=== PATIENT | female | born 1955 | race Caucasian/White ===

== ENCOUNTER 2021-05-07 15:21 | Outpatient (CLI) | payer MEDICARE, MEDICAID ==
[2021-05-07 16:59] LABS: BUN - BLOOD UREA NITROGEN 25 mg/dL (6-20); CALCIUM 9.5 mg/dL (8.5-10.3); CARBON DIOXIDE - CO2 26 mmol/L (21-32); CHLORIDE 104 mmol/L (101-111); CHOL/HDL RATIO 3.5 (<4.4); CHOLESTEROL 130 mg/dL; CREATININE 1.3 mg/dL (0.4-1.0); GFR - MDRD 41 (>89); GLUCOSE 114 mg/dL (70-100); HDL CHOLESTEROL 37 mg/dL; LDL CHOLESTEROL,CALCULATED 28 mg/dL; LDL/HDL RATIO 0.8 (<4.4); POTASSIUM 3.9 mmol/L (3.5-5.0); SODIUM 140 mmol/L (135-145); TRIGLYCERIDES 325 mg/dL; VLDL CHOLESTEROL 65 mg/dL
--- NOTE | 2021-05-07 19:27 | Ultrasound Report ---
PROCEDURE: Duplex Upr Ext Arterial RT INDICATIONS: SUBCLAVIAN ATERY STENOSIS TECHNIQUE: Color and pulse Doppler interrogation was performed of right upper extremity arterial systems, with i mage documentation. COMPARISON: None. FINDINGS: Subclavian artery (proximal): 164 cm/sec, with monophasic flow. Subclavian artery (mid): 154 cm/sec, with biphasic flow. Subclavian artery (distal): 143 cm/sec, with biphasic flow. Axillary artery: 126 cm/sec, with monophasic flow. Brachial artery (mid): 92 cm/sec, with monophasic flow. Radial artery (proximal): 65 cm/sec, with monophasic flow. Radial artery (mid): 89 cm/sec, with monophasic flow. Radial artery (distal): 77 cm/sec, with monophasic flow. Ulnar artery (proximal): 75 cm/sec, with monophasic flow. Ulnar artery (mid): 86 cm/sec. with monophasic flow. Ulnar artery (distal): 76 cm/sec, with monophasic flow. North-scale imaging description: Mild sclerotic plaque noted IMPRESSION: 1. Monophasic waveforms throughout the exam consistent with peripheral arterial disease. No occlusion 2. Subclavian stent not visualized by ultrasound Reviewed by: Alejandro Gonsales MD on 05/07/2021 6:25 PM JUAN Approved by: Alejandro Gonsales MD on 05/07/2021 6:25 PM AKBOBBY Station ID: [id number]
== END 2021-05-07 15:22 | disposition home or self-care (01) ==
LOC: DI 15:21 → LAB 15:22
PROVIDERS: ATTEND Internal Medicine
DX: I25.10 Atherosclerotic heart disease of native coronary artery without angina pectoris (principal); I25.83 Coronary atherosclerosis due to lipid rich plaque; I77.1 Stricture of artery; I50.42 Chronic combined systolic (congestive) and diastolic (congestive) heart failure
CPT/HCPCS: 36415; 80048; 80053; 80061; 83721

== ENCOUNTER 2022-01-06 11:06 | Outpatient (CLI) | payer MEDICARE, MEDICAID ==
--- NOTE | 2022-01-07 07:28 | Ultrasound Report ---
ULTRASOUND OF RIGHT AXILLA: 01/06/2022 CLINICAL: Focal right axilla pain. No prior exams were available for comparison. Color flow ultrasound of the right axilla was performed. North scale images of the real-time examinat ion were reviewed. No significant abnormalities were seen sonographically in the right axilla. IMPRESSION: NEGATIVE There is no sonographic evidence of malignancy. There is no abnormality seen in the right breast to correspond with the pain in the axilla, however, clinical followup is recommended. This exam was interpreted at Station ID: [id number]. Electronically Signed By: Blake zapien/[email or web address]:01/06/2022 11:40:43 Ultrasound BI-RADS: 1 Negative BI-RADS CATEGORY: (1) - 1 Unspecified - other recall n/a LATERALITY: (B)
== END 2022-01-06 11:07 | disposition home or self-care (01) ==
LOC: DI 11:06
PROVIDERS: ATTEND Internal Medicine
DX: M79.621 Pain in right upper arm (principal)

== ENCOUNTER 2022-04-10 07:02 | Outpatient (CLI) | payer MEDICARE, MEDICAID ==
--- NOTE | 2022-04-10 14:08 | XRAY Report ---
PROCEDURE: Chest 2 View X-Ray INDICATIONS: PAIN TECHNIQUE: 2 view(s) of the chest. COMPARISON: None. FINDINGS: Surgical changes and devices: None. Lungs and pleura: No pleural effusions or pneumothorax. Lungs are clear. Mediastinum: Mediastinal contours are normal. Heart size is normal. Bones and chest wall: No suspicious bony abnormalities. Soft tissues appear unremarkable. IMPRESSION: No acute pulmonary process. Reviewed by: Louisa Huffman MD on 04/10/2022 2:07 PM PDT Approved by: Louisa Huffman MD on 04/10/2022 2:07 PM PDT Station ID: [id number]
== END 2022-04-10 07:03 | disposition home or self-care (01) ==
LOC: DI.N 07:02
PROVIDERS: ATTEND Physician Assistant
DX: R06.02 Shortness of breath (principal); R09.89 Other specified symptoms and signs involving the circulatory and respiratory systems

== ENCOUNTER 2023-02-15 15:18 | Outpatient (CLI) | payer MEDICARE, MEDICAID ==
--- NOTE | 2023-02-16 09:38 | DEXA Report ---
PROCEDURE: Dexa Spine and/or Hip INDICATIONS: POSTMENOPAUSAL TECHNIQUE: Dual energy x-ray absorptiometry (DXA) was performed on a StepOut System. Regions measur ed are the AP Spine, femoral neck, and if needed forearm. COMPARISON: None. FINDINGS: Lumbar Spine: Bone Mineral Density 1.061 g/cm/cm,T score -1.0, normal Left Femoral Neck: Bone Mineral Density 0.848 g/cm/cm, T score -1.4, osteopenia Left total Hip: Bone Mineral Density 0.891 g/cm/cm,T score -0.9, normal (T score greater or equal to -1.0: NORMAL) (T score from -1.1 to -2.4: OSTEOPENIA) (T score less than or equal to -2.5 to: OSTEOPOROSIS) Impression: Osteopenia Patients with diagnosis of osteoporosis or osteopenia should have regular bone mineral density assess ment. For those eligible for Medicare, routine testing is allowed once every 2 years. Testing frequ ency can be increased for patients who have rapidly progressing disease or for those who are receivin g medical therapy to restore bone mass. Reviewed by: Betito Graves on 02/16/2023 9:37 AM PDT Approved by: Betito Graves on 02/16/2023 9:37 AM PDT Station ID: [id number]
== END 2023-02-15 15:19 | disposition home or self-care (01) ==
LOC: DI 15:18
PROVIDERS: ATTEND Physician Assistant
DX: M85.89 Other specified disorders of bone density and structure, multiple sites (principal)

== ENCOUNTER 2023-03-19 15:58 | Outpatient (CLI) | payer MEDICARE, MEDICAID ==
--- NOTE | 2023-03-20 15:17 | Ultrasound Report ---
PROCEDURE: Duplex Lwr Ext Arterial Bilat INDICATIONS: CLAUDICATION TECHNIQUE: Color and pulse Doppler interrogation was performed of both lower extremity arterial systems, with im age documentation. COMPARISON: None FINDINGS: Right lower extremity: Common femoral artery: 195 cm/sec, with biphasic flow. Deep femoral artery: 62 cm/sec, with biphasic flow. Proximal superficial femoral artery: 132 cm/sec, with biphasic flow. Mid superficial femoral artery: 141 cm/sec, with biphasic flow. Distal superficial femoral artery: 40 cm/sec, with biphasic flow. Popliteal artery: 79 cm/sec, with biphasic flow. Posterior tibial artery: 98 cm/sec, with biphasic flow. Anterior tibial artery/dorsalis pedis: 81 cm/sec, with biphasic flow. North-scale imaging description: Mild atherosclerotic plaque Left lower extremity: Common femoral artery: 162 cm/sec, with biphasic flow. Deep femoral artery: 94 cm/sec, with biphasic flow. Proximal superficial femoral artery: 159 cm/sec, with biphasic flow. Mid superficial femoral artery: 93 cm/sec, with biphasic flow. Distal superficial femoral artery: 97 cm/sec, with biphasic flow. Popliteal artery: 87 cm/sec, with biphasic flow. Posterior tibial artery: 99 cm/sec, with biphasic flow. Anterior tibial artery/dorsalis pedis: 84 cm/sec, with biphasic flow. North-scale imaging description: Scattered atherosclerotic plaque IMPRESSION: Elevated peak systolic velocity in the right SQL TECH suggests inflow disease Reviewed by: Alejandro Gonsales MD on 03/20/2023 2:16 PM AKBOBBY Approved by: Alejandro Gonsales MD on 03/20/2023 2:16 PM AKDT Station ID: [id number]
== END 2023-03-19 15:59 | disposition home or self-care (01) ==
LOC: DI 15:58
PROVIDERS: ATTEND Podiatrist
DX: I73.89 Other specified peripheral vascular diseases (principal)
CPT/HCPCS: 93925

== ENCOUNTER 2023-03-19 16:00 | Outpatient (CLI) | payer MEDICARE, MEDICAID ==
--- NOTE | 2023-03-20 00:33 | XRAY Report ---
PROCEDURE: Ankle 3 View BILAT INDICATIONS: BILATERAL ANKLE PAIN TECHNIQUE: 3 views of the ankle were acquired. COMPARISON: None. FINDINGS: Right side: Mild degenerative changes without acute fracture or dislocation. Ankle mortise appears ma intained. No suspicious calcifications. There may be some soft tissue swelling. Calcaneal enthesopath y is present. Left side: Mild degenerative changes without acute fracture or dislocation. No suspicious calcificati ons. The ankle mortise appears maintained. Trace calcaneal enthesopathy. There may be some soft tissu e swelling. IMPRESSION: Mild bilateral degenerative changes, without acute radiographic abnormality. If there is high concern for further derangement, consider MRI evaluation. Reviewed by: Obey Nicole MD on 03/20/2023 12:31 AM PDT Approved by: Obey Nicole MD on 03/20/2023 12:31 AM PDT Station ID: [id number]
== END 2023-03-19 16:01 | disposition home or self-care (01) ==
LOC: DI 16:00
PROVIDERS: ATTEND Podiatrist
DX: M19.071 Primary osteoarthritis, right ankle and foot (principal); M19.072 Primary osteoarthritis, left ankle and foot

== ENCOUNTER 2023-04-15 07:45 | Outpatient (CLI) | payer MEDICARE, MEDICAID ==
--- NOTE | 2023-04-15 15:05 | Ultrasound Report ---
PROCEDURE: Arterial Visceral Complete INDICATIONS: RENAL ARTERY STENOSIS,SUBCLAVIAN ARTERY STENOSIS TECHNIQUE: Real time scanning was performed of both kidneys, followed by Color and pulsed Doppler in terrogation of the renal vessels. COMPARISON: None FINDINGS: Aortic peak systolic velocity: 87 cm/s. Right side: North-scale imaging: Kidney is 6.7 cm in length. No hydronephrosis. No nephrolithiasis. Renal cortex is normal in echogenicity. No suspicious solid renal masses. Proximal renal artery peak systolic velocity: Not identified. Mid renal artery peak systolic velocity: Not identified Distal renal artery peak systolic velocity: Not identified Hilum peak systolic velocity: 46 cm/s Renal vein: Patent, without thrombus. Peak renal/aortic ratio (RAR): 0.53. Left side: North-scale imaging: Kidney is 11.4 cm in length. No hydronephrosis. No nephrolithiasis. Renal irwin x is normal in echogenicity. No suspicious solid renal masses. Color flow imaging: Left renal arterial bypass is patent. Proximal renal artery peak systolic velocity: 402 cm/s. Mid-renal artery peak systolic velocity: 291 cm/s. Distal renal artery peak systolic velocity: 26 cm/s. Hilum peak systolic velocity: 186 cm/s Renal vein: Patent, without thrombus. Peak renal/aortic ratio (RAR): 1.64. IMPRESSION: 1. Left renal artery bypass is patent. 2. High-grade stenosis at the left anastomosis to the aorta greater than 60%. 3. No flow to the right kidney with small size and atrophy of the right kidney consistent with ischem ia. Reviewed by: Betito Graves on 04/15/2023 3:04 PM PDT Approved by: Betito Graves on 04/15/2023 3:04 PM PDT Station ID: [id number]
--- NOTE | 2023-04-15 15:09 | Ultrasound Report ---
PROCEDURE: Duplex Upr Ext Arterial RT INDICATIONS: RENAL ARTERY STENOSIS,SUBCLAVIAN ARTERY STENOSIS TECHNIQUE: Color and pulse Doppler interrogation was performed of right upper extremity arterial systems, with i mage documentation. COMPARISON: None. FINDINGS: The right subclavian artery stent is patent. Significant stenosis greater than 50% is seen within the mid and distal subclavian artery. IMPRESSION: 1. Hemodynamically significant stenosis in the mid and distal subclavian artery greater than 50%. 2. Subclavian artery stent is patent. Reviewed by: Betito Graves on 04/15/2023 3:07 PM PDT Approved by: Betito Graves on 04/15/2023 3:07 PM PDT Station ID: [id number]
== END 2023-04-15 07:46 | disposition home or self-care (01) ==
LOC: DI 07:45
PROVIDERS: ATTEND Thoracic Surgery (Cardiothoracic Vascular Surgery)
DX: I70.1 Atherosclerosis of renal artery (principal); I70.8 Atherosclerosis of other arteries; I70.0 Atherosclerosis of aorta
CPT/HCPCS: 93975

== ENCOUNTER 2023-10-22 09:00 | Outpatient (CLI) | payer MEDICARE, MEDICAID ==
[2023-10-22 12:28] LABS: BASOPHILS % (AUTO) 0.4 %; EOSINOPHILS # (AUTO) 0.2 10^3/uL (0.0-0.7); EOSINOPHILS % (AUTO) 1.9 %; HCT - HEMATOCRIT 38.3 % (37.0-47.0); HGB - HEMOGLOBIN 12.9 g/dL (12.0-16.0); LYMPHOCYTES # (AUTO) 1.7 10^3/uL (1.5-3.5); LYMPHOCYTES % (AUTO) 21.6 %; MEAN CORPUSCULAR HEMOGLOBIN 33.9 pg (27.0-31.0); MEAN CORPUSCULAR HGB CONC 33.7 g/dL (32.0-36.0); MEAN CORPUSCULAR VOLUME 100.5 fL (81.0-99.0); MEAN PLATELET VOLUME 10.1 fL (7.9-10.8); MONOCYTES # (AUTO) 0.5 10^3/uL (0.0-1.0); MONOCYTES % (AUTO) 6.8 %; NEUTROPHILS # (AUTO) 5.5 10^3/uL (1.5-6.6); PLT - PLATELET COUNT 198 10^3/uL (130-450); RED BLOOD COUNT 3.81 10^6/uL (4.20-5.40); RED CELL DISTRIBUTION WIDTH 12.3 % (12.0-15.0); WHITE BLOOD COUNT 7.9 x10^3/uL (4.8-10.8)
[2023-10-22 13:11] LABS: ALBUMIN 4.1 g/dL (3.2-5.5); ALBUMIN/GLOBULIN RATIO 2.3 (1.0-2.2); BILIRUBIN,TOTAL 0.3 mg/dL (0.2-1.0); CALCIUM 9.1 mg/dL (8.5-10.3); CREATININE 1.3 mg/dL (0.6-1.3); POTASSIUM 4.2 mmol/L (3.5-4.5); TOTAL PROTEIN 5.9 g/dL (6.4-8.9)
== END 2023-10-22 09:15 | disposition home or self-care (01) ==
LOC: LAB.N 09:00
PROVIDERS: ATTEND Physician Assistant Medical
DX: R10.30 Lower abdominal pain, unspecified (principal)
CPT/HCPCS: 36415; 80053; 83690; 85025; 87086

== ENCOUNTER 2023-11-01 08:27 | Outpatient (CLI) | payer MEDICARE, MEDICAID ==
[2023-11-01] MEDS ORDERED: DIATR MEGLU/DIATRIZOATE SODIUM 120 ML BOTTLE ONE (08:36)
[2023-11-01] MEDS ORDERED: DIATRIZOATE MEGLU/DIATRIZO SOD 30 ML BOTTLE PO ONE (10:25)
--- NOTE | 2023-11-01 15:11 | CT Report ---
PROCEDURE: ABDOMEN/PELVIS WO INDICATIONS: SUPRAPUBIC PAIN TECHNIQUE: A CT scan of the abdomen and pelvis was performed without the use of intravenous contrast. Images we re recorded and evaluated at appropriate window settings. Reformats: coronal and sagittal. For radiat ion dose reduction, the following was used: automated exposure control, adjustment of mA and/or kV ac cording to patient size. COMPARISON: None. FINDINGS: Image quality: Excellent. Lung bases and heart: Unremarkable. Liver: Normal. Gallbladder and biliary tree: Surgically absent gallbladder. Nondilated biliary tree. Spleen: Normal. Pancreas: No pancreatic ductal dilation. Adrenals: No adrenal nodule. Kidneys and ureters: Markedly atrophic right kidney. No calcifications or hydronephrosis. Normal left renal contour and normal bilateral ureters. Bowel and peritoneum: Short segmental wall thickening involving the mid sigmoid colon. Numerous diver ticula. Mild pericolonic fat stranding. Adjacent fascial thickening. No adjacent fluid or extralumina l gas. Appendix, stomach, small bowel, and remainder of the colon are normal. Lymph nodes: No central or retroperitoneal adenopathy. Vessels: No infrarenal aortic aneurysm. Left renal artery origin stent. Mild calcific atherosclerosis . PELVIS Reproductive organs: Anteverted uterus. Normal ovarian tissue. Bladder: No wall thickness, accounting for underdistention. Pelvic lymph nodes: No pelvic adenopathy by size criteria. Bones: No aggressive osseous abnormality. Other: No significant ventral or inguinal hernia. IMPRESSION: 1. Findings of mild acute, uncomplicated mid sigmoid diverticulitis. 2. Atrophied right kidney and left renal artery stent. 3. Cholecystectomy. Reviewed by: Jessica Pate MD on 11/01/2023 3:10 PM PST Approved by: Jessica Pate MD on 11/01/2023 3:10 PM PST Station ID: [id number]
== END 2023-11-01 08:28 | disposition home or self-care (01) ==
LOC: DI 08:27
PROVIDERS: ATTEND Physician Assistant Medical
DX: K57.32 Diverticulitis of large intestine without perforation or abscess without bleeding (principal); N26.1 Atrophy of kidney (terminal); Z95.828 Presence of other vascular implants and grafts; Z90.49 Acquired absence of other specified parts of digestive tract
CPT/HCPCS: 74176; Q9963

== ENCOUNTER 2023-12-15 13:58 | Emergency (ER) | payer MEDICARE, MEDICAID ==
[2023-12-15 14:21] VITALS: BP 114/50; O2SAT 99
--- NOTE | 2023-12-15 17:53 | ED Physician Documentation ---
History of Present Illness - Stated complaint Stated Complaint: GI - Chief complaint Chief Complaint: General - Additonal information Additional information: 67-year-old female presents emergency department for concerns of possible rectal prolapse. Patient says that she has a history of irritable bowel syndrome and alternates between diarrhea constipation. The last couple days she said that she has been having regular bowel movements but she said when she got out of the shower she noticed some bulging at her anus she read online that this is most likely due to a rectal prolapse she attempted to reinsert the rectal prolapse but is concerned that it is not fully back in place this is never happened to her before. She denies inserting anything foreign into her rectum and denies any pain. PD PAST MEDICAL HISTORY - Past Medical History Past Medical History: No Cardiovascular: Congestive heart failure, High cholesterol Respiratory: None Neuro: None Endocrine/Autoimmune: None GI: None : Other HEENT: None Psych: None Musculoskeletal: None Derm: Herpes zoster - Past Surgical History Past Surgical History: No General: Cholecystectomy /[employer]IC: section, Mastectomy - Present Medications Home Medications: Ambulatory Orders Medication Instructions Recorded Confirmed Ezetimibe/Simvastatin 10 mg PO DAILY 12/15/23 [Ezetimibe-Simvastatin 10-10 mg] Spironolactone [Aldactone] 25 mg PO DAILY 12/15/23 carvediloL [Coreg] 25 mg PO DAILY 12/15/23 - Allergies Allergies/Adverse Reactions: Allergies Allergy/AdvReac Type Severity Reaction Status Date / Time amodiaquine Allergy Hives Verified 12/15/23 14:08 lisinopril Allergy Hives Verified 12/15/23 14:08 Sulfa (Sulfonamide Allergy Hives Verified 12/15/23 14:08 Antibiotics) - Social History Does the pt smoke?: No Smoking Status: Never smoker Does the pt drink ETOH?: No Does the pt have substance abuse?: No - Immunizations Immunizations are current?: Yes PD ED PE NORMAL - Vitals Vital signs reviewed: Yes - General General: Alert and oriented X 3, No acute distress, Well developed/nourished - Rectal Rectal: Other (Rectum appears unremarkable, no prolapse no hemorrhoids sphincter appears tight.) - Psych Psych: Normal mood Results - Vitals Vitals: Vital Signs - 24 hr 12/15/23 12/15/23 12/15/23 14:09 16:52 18:01 Temperature 36.8 C Heart Rate 85 80 Respiratory 16 17 16 Rate Blood Pressure 114/50 L O2 Saturation 99 99 Oxygen O2 Source Room air PD Medical Decision Making - ED course ED course: I evaluated the patient's rectum there is no acute abnormalities. Patient was told if she was having a rectal prolapse that is common for this to happen again she has a GI appointment coming up next month for further evaluation of some other GI concerns and symptoms that she is experiencing was told to follow-up about her concerns of possible rectal prolapse. Patient was given return precautions there is no intervention warranted at this time she denies any rectal pain or other concerns. Safe for discharge. Departure - Departure Disposition: Home, Self Care Clinical Impression: Rectal abnormality Condition: Good Instructions: ED Prolapse Rectal Comments: Thank you for trusting us with your care sounds like you may have had what is called a rectal prolapse at home. It also sounds like you able to put it back into its proper place on your own. As we discussed if this was indeed a rectal prolapse once this happens once you are prone to have this happen again in the future. Please come back to the emergency department if you are unable to get your rectum back in after 4 hours or earlier if you are having severe pain with it. Make sure that you are keeping your stools nice and soft consider taking a fiber supplement to help with this. Please follow-up with your primary care provider and follow-up with your GI appointment and let them know about your concerns about your possible rectal prolapse that you experience. Forms: PCP List Discharge Date/Time: 12/15/23 18:01
== END 2023-12-15 18:01 | disposition home or self-care (01) ==
LOC: ED 13:58
DX: K62.89 Other specified diseases of anus and rectum (principal)
CPT/HCPCS: 99281; 99283